=== PATIENT | male | born 1960 | race Caucasian/White ===

== ENCOUNTER → 2018-12-05 | Outpatient (CLI) | payer OTHER ==
--- NOTE | 2018-12-05 12:49 | KCIC ---
EXAM: Lumbar spine, flexion and extension. HISTORY: Pain. COMPARISON: None. FINDINGS: Frontal, lateral, flexion and extension views of the lumbar spine are obtained. There is grade 2 anterolisthesis of L5 on S1 with associated pars defects. There is degenerative endplate remodeling with disc space narrowing, osteophytosis and facet arthropathy at this level. The degree of listhesis is not significant change between flexion and extension, allowing for limitations due to overlying osseous structures. IMPRESSION: 1. Grade 2 anterolisthesis of L5 on S1 with associated pars defects and advanced degenerative change. 2. No acute osseous finding. Electronically signed by: Genie Vivar MD (12/05/2018 12:46 PM) [facility]
== END | disposition home or self-care (01) ==
LOC: KCIC 11:25
PROVIDERS: ATTEND Neurological Surgery
DX: M43.07 Spondylolysis, lumbosacral region (principal); M48.07 Spinal stenosis, lumbosacral region; M12.88 Other specific arthropathies, not elsewhere classified, other specified site; G89.29 Other chronic pain
CPT/HCPCS: 72110

== ENCOUNTER 2019-01-19 10:30 | Inpatient (IN) | payer OTHER ==
[~2019-01-19] VITALS: Ht 175.3 cm; Wt 81.6 kg
[2019-02-24] MEDS ORDERED: IBUP-1060 PO (17:15)
[2019-02-24] MEDS ORDERED: CANA300T PO (17:15)
[2019-02-24] MEDS ORDERED: METF10007 PO (17:15)
[2019-02-24] MEDS ORDERED: ATOR20TA58 PO (17:15)
[2019-02-24] MEDS ORDERED: OLME40TA12 PO (17:15)
[2019-02-24] MEDS ORDERED: LEVO50TA5 PO (17:15)
[2019-02-24] MEDS ORDERED: LORA-781 PO (17:15)
[2019-02-24] MEDS ORDERED: FLUT9.9S NS (17:15)
[2019-02-24] MEDS ORDERED: ZOLP10TA4 PO (17:15)
--- NOTE | 2019-03-03 15:50 | HP ---
ADMIT DATE: 03/06/2019 HISTORY OF PRESENT ILLNESS: The patient is a pleasant 59-year-old, who has problems with low back and left leg pain and has for years. His left leg feels weak and numb. He did undergo lumbar spine surgery in 1992 and did reasonably well from that. He says, beginning over the last year, he has noted an increase in his back and leg pain. He rates his pain usually a 6-7/10 and says it increases with activity. Lying down, does help him. He has been taking ibuprofen. He did take epidural steroid injections a year ago. He has also tried physical therapy, which made his symptoms worse. PAST MEDICAL HISTORY: Hypothyroidism, diabetes, hyperlipidemia, hypertension, insomnia. PAST SURGICAL HISTORY: Lumbar surgery in 1992, tonsillectomy. FAMILY HISTORY: Hypertension. ALLERGIES: TO PENICILLIN AND SULFA. CURRENT MEDICATIONS: Atorvastatin, Bydureon, Invokana, levothyroxine sodium, loratadine, metformin, olmesartan, triamcinolone, Voltaren, and zolpidem tartrate. REVIEW OF SYSTEMS: A 12-point review of systems was obtained and is noncontributory, except for that mentioned above. PHYSICAL EXAMINATION: NEUROSURGERY EXAMINATION: GENERAL APPEARANCE: Alert, pleasant, in no acute distress. HEAD: Normocephalic and atraumatic. SKIN: Warm and dry. Well healed lumbar incision. MUSCULOSKELETAL: Lumbar paraspinal muscle bulk is normal, restricted range of motion of lumbar spine, ceyn-dg-huuqebiz tenderness of lower lumbar spine with palpation, normal range of motion of the lower extremities bilaterally. EXTREMITIES: No clubbing, cyanosis, or edema. NEUROLOGIC: Alert and oriented x 3, normal recent and remote memory, strength 5/5 in bilateral lower extremities, except for 4/5 left foot dorsiflexion, and sensory was intact to light touch in bilateral lower extremities, except for decrease in light touch involving the dorsum of the left foot. Reflexes are present and symmetric in the lower extremities bilaterally. Positive straight leg raising on the left with back and left buttock pain, relieved by Lasegue's maneuver, negative straight leg raising on the right. Normal gait. IMAGING: I reviewed a lumbar MRI scan. There are postoperative changes at L5-S1 on the left. There is moderately severe left foraminal stenosis at this level. There is a grade 1 anterolisthesis. He does have pars interarticularis defect bilaterally at this level. I reviewed lumbar flexion and extension x-rays and there is no motion with grade 2 anterolisthesis. ASSESSMENT/ PLAN: He has not improved with time or physical therapy. I have recommended a laminectomy at L5-S1 with posterior instrumentation and posterolateral interbody fusion. We reviewed the rationale, technique, risks, and expected postoperative course. He would like to proceed. We are going to make the arrangements. SHIRIN VIEYRA MD DR: LUIS A/benjamin JOB#: [id number] / [id number] STEFANIE
[2019-03-06] VITALS (9 sets, daily range): BP systolic 107–125; BP diastolic 65–77
[2019-03-06] MEDS ORDERED: BACITRACIN 50,000 UNIT in IV NORMAL SALINE 1000ML BAG 1,000 ML IRR ONE (06:00)
[2019-03-06] MEDS ORDERED: BUPIVACAINE-EPI 0.5%-1:200000 MPF 30 ML VIAL. INJ ONE (06:30)
[2019-03-06] MEDS ORDERED: PROCHLORPERAZINE 10 MG/2 ML VIAL. IV PRN (07:00)
[2019-03-06] MEDS ORDERED: fentaNYL PF VIAL 100 MCG/2 ML VIAL IV PRN (07:00)
[2019-03-06] MEDS ORDERED: ONDANSETRON PF 4 MG/2 ML VIAL. IV PRN ×2 (07:00→14:30)
[2019-03-06] MEDS ORDERED: LIDOCAINE 1% PF 2 ML VIAL. ID PRN (07:00)
[2019-03-06] MEDS ORDERED: IV RINGERS,LACTATED 1000ML 1,000 ML IV SCH (07:00)
[2019-03-06] MEDS ORDERED: HYDROmorphone 2 MG/ML VIAL IV PRN (07:00)
[2019-03-06] MEDS ORDERED: GELATIN SPONGE SIZE 100. ONE (07:12)
[2019-03-06] MEDS ORDERED: KETOROLAC 60 MG/2 ML VIAL. ONE (07:12)
[2019-03-06] MEDS ORDERED: THROMBIN TOPICAL 20,000 UNIT SPRAY.SYRN KIT TP ONE (07:13)
[2019-03-06] MEDS ORDERED: ROCURONIUM 50 MG/5 ML VIAL. ONE (08:01)
[2019-03-06] MEDS ORDERED: PROPOFOL 50 ML IV ONE ×2 (08:01→12:01)
[2019-03-06] MEDS ORDERED: LIDOCAINE 2% PF 5 ML VIAL. ONE (08:01)
[2019-03-06] MEDS ORDERED: DEXAMETHASONE SOD PHOS 20 MG/5 ML VIAL. ONE (08:01)
[2019-03-06] MEDS ORDERED: ONDANSETRON PF 4 MG/2 ML VIAL. ONE (08:01)
[2019-03-06] MEDS ORDERED: PROPOFOL 20 ML IV ONE (08:01)
[2019-03-06] MEDS ORDERED: REMIFENTANIL 2 MG VIAL. IV ONE (08:01)
[2019-03-06] MEDS ORDERED: PHENYLEPHRINE 10 MG/ML VIAL. ONE (08:02)
[2019-03-06] MEDS ORDERED: 0.9 % SODIUM CHLORIDE 20 ML VIAL. IJ ONE (08:02)
[2019-03-06] MEDS ORDERED: MINERAL OIL/PETROLATUM,WHITE OPHTH OINT 3.5GM TUBE. ONE (08:02)
[2019-03-06] MEDS ORDERED: INSULIN LISPRO 100 UNIT/ML 3ML VIAL for OP,RR ONLY. SQ PRN (08:30)
[2019-03-06] MEDS ORDERED: MIDAZOLAM HCL/PF 2 MG/2 ML VIAL. ONE (10:08)
[2019-03-06] MEDS ORDERED: ePHEDrine PF IN SALINE 50 MG/10 ML SYRINGE. IV ONE (11:15)
[2019-03-06] MEDS ORDERED: GLYCOPYRROLATE 1 MG/5 ML VIAL. ONE (11:18)
--- NOTE | 2019-03-06 13:19 | RAD ---
CT LUMBAR SPINE WO CONTRAST History: Spondylolisthesis. Lumbar stenosis. Radiculopathy. Technique: Noncontrast CT of the lumbar spine. Coronal and sagittal reconstructions were performed. Comparison: Radiograph December 05, 2018. Findings: Grade 2 anterolisthesis L5 on S1 due to bilateral L5 spondylolysis. L1-L2: Minimal posterior disc bulge. Mild facet arthropathy. No canal or neuroforaminal narrowing. L2-L3: Small posterior disc bulge. Mild facet arthropathy. No canal or neuroforaminal narrowing. L3-L4: Posterior disc bulge. Moderate facet arthropathy. Subarticular recess narrowing. No canal narrowing. No neuroforaminal narrowing. L4-L5: Broad-based posterior disc bulge. Advanced facet arthropathy. Mild canal narrowing. No neuroforaminal narrowing. L5-S1: Grade 2 anterolisthesis. Disc uncovering. No canal narrowing. Moderate to severe left and severe right neural foraminal narrowing. Impression: 1. Grade 2 anterolisthesis L5 on S1 due to bilateral L5 spondylolysis contributing to severe right and moderate to severe left neuroforaminal narrowing. 2. Additional lumbar spondylosis most prominent L4-L5. Electronically signed by: Raul Godoy DO (03/06/2019 1:16 PM) [id number]
[2019-03-06] MEDS ORDERED: METHOCARBAMOL 750 MG TABLET PO PRN (14:30)
[2019-03-06] MEDS ORDERED: MAG HYDROX/ALUMINUM HYD/SIMETH 30 ML ORAL.SUSP PO PRN (14:30)
[2019-03-06] MEDS ORDERED: NALOXONE 0.4 MG/ML VIAL. IV PRN (14:30)
[2019-03-06] MEDS ORDERED: ACETAMINOPHEN 325 MG TABLET. PO PRN (14:30)
[2019-03-06] MEDS ORDERED: 0.9 % SODIUM CHLORIDE 10 ML DISP.SYRIN. IV PRN (14:30)
[2019-03-06] MEDS ORDERED: oxyCODONE/APAP 5/325 1 TAB TABLET PO PRN (14:30)
[2019-03-06] MEDS ORDERED: fentaNYL PF VIAL 100 MCG/2 ML VIAL IVP PRN (14:30)
[2019-03-06] MEDS ORDERED: MAGNESIUM HYDROXIDE 2,400 MG/30 ML ORAL.SUSP. PO PRN (14:30)
[2019-03-06] MEDS ORDERED: CALCIUM CARBONATE 500 MG TAB.CHEW PO PRN (14:30)
[2019-03-06] MEDS ORDERED: DEXTROSE 50% 25 GM / 50ML DISP.SYRIN. IV PRN ×2 (14:30→16:45)
[2019-03-06] MEDS ORDERED: diphenhydrAMINE HCL 25 MG CAPSULE PO PRN (14:30)
[2019-03-06] MEDS ORDERED: fentaNYL PF VIAL 100 MCG/2 ML VIAL ONE ×2 (14:44→15:31)
[2019-03-06] MEDS: fentaNYL PF VIAL 100 MCG/2 ML VIAL IV PRN ×4 (14:48→15:53)
[2019-03-06] MEDS ORDERED: MORPHINE SULFATE 2 MG/ML VIAL. ONE (15:07)
[2019-03-06] MEDS: MORPHINE SULFATE 2 MG/ML VIAL. IV PRN ×2 (15:12→15:24)
[2019-03-06] MEDS ORDERED: ZOLPIDEM 5 MG TABLET. PO PRN (15:15)
--- NOTE | 2019-03-06 16:10 | NUR ---
Arrived to unit by bed from PACU. Alert and oriented x's 4. No c/o at this time. Dressings lower back x's 2 have moderate amts of shadowing. Place ice pack to the area. Moves all extremities without difficulty. No numbness. Pedal pulses +, warm touch and wiggles toes without difficulty. ANA's and SCD's on bilaterally. O2 at 2l per n/c. IVF's intact and infusing. Oriented to room and controls. Side rails up X's 2 with call light in reach. Family at bedside. Cont. monitor.
[2019-03-06] MEDS: INSULIN LISPRO 300 UNITS/3 ML VIAL. SQ SCH (16:59)
[2019-03-06] MEDS ORDERED: POTASSIUM CL 20MEQ-0.45% NACL 1,000 ML IV SCH (17:00)
[2019-03-06] MEDS: ceFAZolin SODIUM IV Push 1 GM VIAL. IVP SCH (18:14)
[2019-03-06] MEDS: DOCUSATE SODIUM 100 MG CAPSULE. PO SCH (20:58)
[2019-03-06] MEDS ORDERED: ATORVASTATIN CALCIUM 20 MG TABLET PO SCH (21:00)
[2019-03-06] MEDS ORDERED: ceFAZolin SODIUM IV Push 1 GM VIAL. IVP SCH (22:00)
[2019-03-07] MEDS: ceFAZolin SODIUM IV Push 1 GM VIAL. IVP SCH ×2 (02:55→11:13)
[2019-03-07 03:00] VITALS: BP 104/61
[2019-03-07 06:00] VITALS: BP 109/54
[2019-03-07] MEDS ORDERED: LEVOTHYROXINE 50 MCG TABLET PO SCH (07:30)
[2019-03-07] MEDS: INSULIN LISPRO 300 UNITS/3 ML VIAL. SQ SCH ×2 (08:00→11:14)
[2019-03-07] MEDS: oxyCODONE/APAP 5/325 1 TAB TABLET PO PRN ×2 (08:03→14:04)
[2019-03-07] MEDS: DOCUSATE SODIUM 100 MG CAPSULE. PO SCH (08:03)
[2019-03-07] MEDS ORDERED: metFORMIN 500 MG TABLET PO SCH (09:00)
[2019-03-07] MEDS ORDERED: ATORVASTATIN CALCIUM 20 MG TABLET PO SCH (09:00)
[2019-03-07] MEDS ORDERED: NON FORMULARY ITEM (Canagliflozin (Invokana) 300 MG) PO SCH (09:00)
[2019-03-07] MEDS ORDERED: FLUTICASONE 50MCG/NASAL SPRAY 16GM BOTTLE. NS SCH (09:00)
[2019-03-07] MEDS ORDERED: LOSARTAN POTASSIUM 50 MG TABLET. PO SCH (09:00)
[2019-03-07] MEDS ORDERED: CETIRIZINE HCL 10 MG TABLET. PO SCH (09:00)
[2019-03-07 11:14] VITALS: BP 114/70
[2019-03-07] MEDS ORDERED: METH750T2 PO (12:27)
[2019-03-07] MEDS ORDERED: DOCU-153 PO (12:27)
[2019-03-07] MEDS ORDERED: OXYC1TAB15 PO (12:27)
--- NOTE | 2019-03-07 12:28 | DISCH ---
DISCHARGE INSTRUCTIONS Condition on Discharge Condition on Discharge: Stable Activity After Discharge Activity Instructions for Disc: Activity as tolerated, Avoid exertion, Prog ressive ambulation Bathing Instructions: No Tub Bath until see Lifting Instructions after Dis: No heavy lifting, No pulling or pushing, Do not lift >10 pounds Exercise Instruction after Dis: Walk 30 min, 5 x per week, Exercise per therapy, Progress as tolerated Driving Instructions after Dis: Do not drive Wound Incision Care Wound/Incision Care: Ice to area for comfort, Keep wound/cast CDI, Change dressing, May get incision wet, Reinforce dressing PRN Other wound/incision instructi: Shower 48 hours after surgery and remove dressing. Replace if desired Wound Care Equipment: Dressings Checks after Discharge Checks after discharge: Check blood sugar, ac/hs Contacting the DREdith after DC Call your doctor for: Concerns you may have Follow-Up Follow Up With: Dr Vieyra's nurse in two weeks for a follow up appointment [phone] Treatment/Equipment after DC Adaptive Equipment Issued: Brace/splint SHIRIN VIEYRA MD Mar 07, 2019 12:28
--- NOTE | 2019-03-07 13:53 | PDOC ---
PROGRESS NOTES Subjective Subjective POD #1 Up ambulating in room back sore legs feel better wants to go home Objective Objective Vital Signs Date Time Temp Pulse Resp B/P (MAP) Pulse Ox O2 Delivery O2 Flow Rate FiO2 03/07/19 11:14 98.0 77 18 114/70 (85) 96 Room Air 98.0 03/07/19 06:00 2.0 Intake and Output 03/07/19 07:00 Intake Total 3280 ml Output Total 3750 ml Balance -470 ml Intake Oral 1480 ml IV Total 1800 ml Output Urine Total 3750 ml Physical Exam General: Alert, Oriented X3, Cooperative, No acute distress MUSCULOSKELETAL: Other (VILLASEÑOR) Skin: Other (Dressing dry and intact) Plan Plan of Care dc home f/u 2 weeks Comment Review of Relevant I have reviewed the following items allan (where applicable) has been applied. Labs Laboratory Tests Test 03/06/19 08:19 03/06/19 09:58 03/06/19 16:28 03/06/19 20:34 Glucose (Fingerstick) 127 mg/dL (70-99) 96 mg/dL (70-99) 200 mg/dL (70-99) 283 mg/dL (70-99) Test 03/07/19 06:25 03/07/19 11:09 Glucose (Fingerstick) 165 mg/dL (70-99) 184 mg/dL (70-99) Laboratory Tests Test 03/06/19 16:28 03/06/19 20:34 03/07/19 06:25 03/07/19 11:09 Glucose (Fingerstick) 200 mg/dL (70-99) 283 mg/dL (70-99) 165 mg/dL (70-99) 184 mg/dL (70-99) Medications Current Medications Ondansetron HCl (Zofran) 4 mg PRN Q6HRS PRN IV NAUSEA/VOMITING; Start 03/06/19 at 07:00; Stop 03/06/19 at 19:00; Status DC Fentanyl Citrate (Fentanyl 2ml Vial) 25 mcg PRN Q5MIN PRN IV MILD PAIN 1-3; Start 03/06/19 at 07:00; Stop 03/06/19 at 19:00; Status DC Fentanyl Citrate (Fentanyl 2ml Vial) 50 mcg PRN Q5MIN PRN IV MODERATE TO SEVERE PAIN Last administered on 03/06/19at 15:53; Start 03/06/19 at 07:00; Stop 03/06/19 at 19:00; Status DC Morphine Sulfate (Morphine Sulfate) 1 mg PRN Q10MIN PRN IV SEVERE PAIN 7-10 Last administered on 03/06/19at 15:24; Start 03/06/19 at 07:00; Stop 03/06/19 at 19:00; Status DC Ringer's Solution 1,000 ml @ 30 mls/hr Q24H IV Last administered on 03/06/19at 08:24; Start 03/06/19 at 07:00; Stop 03/06/19 at 18:59; Status DC Lidocaine HCl (Xylocaine-Mpf 1% 2ml Vial) 2 ml PRN 1X PRN ID PRIOR TO IV START; Start 03/06/19 at 07:00; Stop 03/06/19 at 19:00; Status DC Hydromorphone HCl (Dilaudid) 0.5 mg PRN Q10MIN PRN IV SEV PAIN, Second choice; Start 03/06/19 at 07:00; Stop 03/06/19 at 19:00; Status DC Prochlorperazine Edisylate (Compazine) 5 mg PACU PRN PRN IV NAUSEA, MRX1; Start 03/06/19 at 07:00; Stop 03/06/19 at 19:00; Status DC Bupivacaine HCl/ Epinephrine Bitart (Sensorcain-Epi 0.5%-1:[id number] Mpf) 30 ml 1X ONCE INJ Last administered on 03/06/19at 11:31; Start 03/06/19 at 06:30; Stop 03/06/19 at 06:31; Status DC Bacitracin 91349 unit/Sodium Chloride 1,000 ml @ 1,000 mls/hr 1X ONCE IRR Last administered on 03/06/19at 11:31; Start 03/06/19 at 06:00; Stop 03/06/19 at 06:59; Status DC Cefazolin Sodium/ Dextrose 50 ml @ 100 mls/hr 1X PREOP PRN IV PRIOR TO PROCEDURE Last administered on 03/06/19at 11:05; Start 03/06/19 at 06:00; Stop 03/06/19 at 18:00; Status DC Gelatin (Gelfoam Size 100) 1 each STK-MED ONCE .ROUTE Last administered on 03/06/19at 11:31; Start 03/06/19 at 07:12; Stop 03/06/19 at 07:13; Status DC Ketorolac Tromethamine (Toradol Im) 60 mg STK-MED ONCE .ROUTE Last administered on 03/06/19at 11:31; Start 03/06/19 at 07:12; Stop 03/06/19 at 07:13; Status DC Thrombin 20,000 unit STK-MED ONCE TP Last administered on 03/06/19at 11:31; Start 03/06/19 at 07:13; Stop 03/06/19 at 07:13; Status DC Propofol 20 ml @ As Directed STK-MED ONCE IV ; Start 03/06/19 at 08:01; Stop 03/06/19 at 08:02; Status DC Dexamethasone Sodium Phosphate (Decadron) 20 mg STK-MED ONCE .ROUTE ; Start 03/06/19 at 08:01; Stop 03/06/19 at 08:02; Status DC Lidocaine HCl (Lidocaine Pf 2% Vial) 5 ml STK-MED ONCE .ROUTE ; Start 03/06/19 at 08:01; Stop 03/06/19 at 08:02; Status DC Ondansetron HCl (Zofran) 4 mg STK-MED ONCE .ROUTE ; Start 03/06/19 at 08:01; Stop 03/06/19 at 08:02; Status DC Propofol 50 ml @ As Directed STK-MED ONCE IV ; Start 03/06/19 at 08:01; Stop 03/06/19 at 08:02; Status DC Rocuronium Palmetto (Zemuron) 50 mg STK-MED ONCE .ROUTE ; Start 03/06/19 at 08:01; Stop 03/06/19 at 08:02; Status DC Remifentanil HCl (Ultiva) 2 mg STK-MED ONCE IV ; Start 03/06/19 at 08:01; Stop 03/06/19 at 08:02; Status DC Phenylephrine HCl (Rudolph-Synephrine Inj) 10 mg STK-MED ONCE .ROUTE ; Start 03/06/19 at 08:02; Stop 03/06/19 at 08:02; Status DC Multi-Ingred Cream/Lotion/Oil/ Oint (Artificial Tears Eye Ointment) 7 gelacio STK- MED ONCE .ROUTE ; Start 03/06/19 at 08:02; Stop 03/06/19 at 08:02; Status DC Sodium Chloride (SODIUM CHLORIDE 20ml) 20 ml STK-MED ONCE IJ ; Start 03/06/19 at 08:02; Stop 03/06/19 at 08:02; Status DC Insulin Human Lispro (HumaLOG VIAL for OP,RR ONLY) 0-10 units PRN Q1HR PRN SQ PER PROTOCOL Last administered on 03/06/19at 08:49; Start 03/06/19 at 08:30; Stop 03/06/19 at 19:00; Status DC Midazolam HCl (Versed) 2 mg STK-MED ONCE .ROUTE ; Start 03/06/19 at 10:08; Stop 03/06/19 at 10:08; Status DC Ephedrine Sulfate (ePHEDrine PF IN SALINE SYRINGE) 50 mg STK-MED ONCE IV ; Start 03/06/19 at 11:15; Stop 03/06/19 at 11:15; Status DC Glycopyrrolate (Robinul) 1 mg STK-MED ONCE .ROUTE ; Start 03/06/19 at 11:18; Stop 03/06/19 at 11:18; Status DC Propofol 50 ml @ As Directed STK-MED ONCE IV ; Start 03/06/19 at 12:01; Stop 03/06/19 at 12:02; Status DC Atorvastatin Calcium (Lipitor) 20 mg HS PO ; Start 03/06/19 at 21:00; Stop 03/06/19 at 20:55; Status DC Levothyroxine Sodium (Synthroid) 50 mcg DAILYAC PO Last administered on 03/07/19at 08:03; Start 03/07/19 at 07:30 Non-Formulary Medication (Canagliflozin (Invokana)) 300 mg DAILY PO ; Start 03/07/19 at 09:00; Status UNV Fluticasone Propionate (Flonase) 2 spray DAILY NS ; Start 03/07/19 at 09:00 Cetirizine HCl (ZyrTEC) 10 mg DAILY PO Last administered on 03/07/19at 08:02; Start 03/07/19 at 09:00 Metformin HCl (Glucophage) 1,000 mg DAILY PO Last administered on 03/07/19at 08:03; Start 03/07/19 at 09:00 Losartan Potassium (Cozaar) 100 mg DAILY PO Last administered on 03/07/19 08:07; Start 03/07/19 at 09:00 Zolpidem Tartrate (Ambien) 10 mg PRN QHS PRN PO INSOMNIA Last administered on 03/06/19 22:58; Start 03/06/19 at 15:15 Fentanyl Citrate (Fentanyl 2ml Vial) 50 mcg PRN Q2HR PRN IVP PAIN Last administered on 03/07/19 00:38; Start 03/06/19 at 14:30 Acetaminophen (Tylenol) 650 mg PRN Q6HRS PRN PO MILD PAIN / TEMP; Start 03/06/19 at 14:30 Al Hydroxide/Mg Hydroxide (Mylanta Plus Xs) 30 ml PRN Q3HRS PRN PO HEARTBURN / GAS; Start 03/06/19 at 14:30 Calcium Carbonate/ Glycine (Tums) 500 mg PRN Q3HRS PRN PO INDIGESTION Last admi nistered on 03/07/19at 10:47; Start 03/06/19 at 14:30 Diphenhydramine HCl (Benadryl) 25 mg PRN Q6HRS PRN PO ITCHING; Start 03/06/19 at 14:30 Naloxone HCl (Narcan) 0.1 mg PRN Q2MIN PRN IV ADMIN; Start 03/06/19 at 14:30 Sodium Chloride (Normal Saline Flush) 3 ml QSHIFT PRN IV AFTER MEDS AND BLOOD DRAWS; Start 03/06/19 at 14:30 Potassium Chloride/Sodium Chloride 1,000 ml @ 75 mls/hr [id number] IV Last administered on 03/06/19 16:26; Start 03/06/19 at 17:00; Stop 03/07/19 at 05:34; Status DC Oxycodone/ Acetaminophen (Percocet 5/325) 1 tab PRN Q4HRS PRN PO MILD PAIN, 1ST CHOICE Last administered on 03/06/19at 20:59; Start 03/06/19 at 14:30 Oxycodone/ Acetaminophen (Percocet 5/325) 2 tab PRN Q4HRS PRN PO MODERATE PAIN, SEVERE PAIN Last administered on 03/07/19 08:03; Start 03/06/19 at 14:30 Methocarbamol (Robaxin) 750 mg PRN TID PRN PO MUSCLE SPASMS Last administered on 03/06/19at 21:13; Start 03/06/19 at 14:30 Docusate Sodium (Colace) 100 mg BID PO Last administered on 03/07/19at 08:03; Start 03/06/19 at 21:00 Magnesium Hydroxide (Milk Of Magnesia) 2,400 mg PRN Q12HR PRN PO CONSTIPATION; Start 03/06/19 at 14:30 Ondansetron HCl (Zofran) 4 mg PRN Q6HRS PRN IV NAUESA, 1ST CHOICE; Start 03/06/19 at 14:30 Cefazolin Sodium (Ancef) 1 gm Q8HRS IVP ; Start 03/06/19 at 22:00; Stop 03/07/19 at 14:01; Status UNV Dextrose (Dextrose 50%-Water Syringe) 12.5 gm PRN Q15MIN PRN IV SEE COMMENTS; Start 03/06/19 at 14:30; Stop 03/06/19 at 16:37; Status DC Morphine Sulfate (Morphine Sulfate) 2 mg STK-MED ONCE .ROUTE ; Start 03/06/19 at 15:07; Stop 03/06/19 at 15:08; Status DC Fentanyl Citrate (Fentanyl 2ml Vial) 100 mcg STK-MED ONCE .ROUTE ; Start 03/06/19 at 14:44; Stop 03/06/19 at 15:10; Status DC Fentanyl Citrate (Fentanyl 2ml Vial) 100 mcg STK-MED ONCE .ROUTE ; Start 03/06 at 15:31; Stop 03/06/19 at 15:32; Status DC Cefazolin Sodium (Ancef) 1 gm Q8H IVP Last administered on 03/07/19at 11:13; S tart 03/06/19 at 19:00; Stop 03/07/19 at 11:01; Status DC Insulin Human Lispro (HumaLOG) 0-5 UNITS TIDWMEALS SQ Last administered on 03/06/19at 16:59; Start 03/06/19 at 17:00 Dextrose (Dextrose 50%-Water Syringe) 12.5 gm PRN Q15MIN PRN IV SEE COMMENTS; Start 03/06/19 at 16:45 Atorvastatin Calcium (Lipitor) 20 mg DAILY PO Last administered on 03/07/19at 08:02; Start 03/07/19 at 09:00 Active Scripts Active Dok (Docusate Sodium) 100 Mg Capsule 100 Mg PO BID Percocet 5-325 Mg Tablet (Oxycodone/Acetaminophen) 1 Each Tablet 1 Tab PO PRN Q4HRS PRN Methocarbamol 750 Mg Tablet 750 Mg PO PRN TID PRN Reported Flonase Allergy Relief (Fluticasone Propionate) 9.9 Ml Stanton.susp 1 Sprays NS DAILY Allergy Relief (Loratadine) 10 Mg Tablet 10 Mg PO DAILY Zolpidem Tartrate 10 Mg Tablet 10 Mg PO PRN QHS PRN Atorvastatin Calcium 20 Mg Tablet 20 Mg PO HS Levothyroxine Sodium 50 Mcg Tablet 50 Mcg PO DAILYAC Benicar (Olmesartan Medoxomil) 40 Mg Tablet 40 Mg PO DAILY Invokana (Canagliflozin) 300 Mg Tablet 300 Mg PO DAILY Metformin Hcl 1,000 Mg Tablet 1,000 Mg PO DAILY Vitals/I & O Vital Sign - Last 24 Hours 03/06/19 03/06/19 03/06/19 03/06/19 14:33 14:33 14:48 14:54 Temp 98.1 98.1 Pulse 124 Resp 16 18 16 B/P (MAP) 115/52 Pulse Ox 97 97 98 O2 Delivery Room Air Mask Simple Mask Simple Mask O2 Flow Rate 10 10.0 10.0 03/06/19 03/06/19 03/06/19 03/06/19 14:55 15:10 15:12 15:24 Temp 98.1 98.1 98.1 98.1 Pulse 130 130 Resp 14 14 16 16 B/P (MAP) 118/65 107/65 Pulse Ox 98 96 96 96 O2 Delivery Room Air Room Air Room Air Room Air 03/06/19 03/06/19 03/06/19 03/06/19 15:25 15:34 15:40 15:53 Temp 98.1 98.1 98.1 98.1 Pulse 126 116 Resp 12 16 15 16 B/P (MAP) 104/65 111/67 Pulse Ox 92 92 94 94 O2 Delivery Room Air Room Air Room Air Nasal Cannula O2 Flow Rate 10.0 2.0 03/06/19 03/06/19 03/06/19 03/06/19 15:55 16:15 16:23 16:30 Temp 98.1 98.6 98.1 98.6 Pulse 116 105 89 Resp 16 18 B/P (MAP) 108/63 112/70 (84) 123/73 (90) Pulse Ox 94 95 95 94 O2 Delivery Room Air Nasal Cannula Nasal Cannula Nasal Cannula O2 Flow Rate 2.0 2.0 2.0 2.0 03/06/19 03/06/19 03/06/19 03/06/19 16:37 16:45 17:02 17:31 Pulse 106 117 100 Resp 20 B/P (MAP) 125/75 (92) 122/71 (88) 108/65 (79) Pulse Ox 95 97 98 O2 Delivery Nasal Cannula Nasal Cannula Nasal Cannula Nasal Cannula O2 Flow Rate 2.0 2.0 2.0 03/06/19 03/06/19 03/06/19 03/06/19 18:00 19:00 19:30 20:00 Temp 98.2 98.2 Pulse 100 103 99 Resp 18 18 18 B/P (MAP) 118/71 (87) 124/71 (88) 121/77 (92) Pulse Ox 97 91 95 O2 Delivery Nasal Cannula Room Air Room Air Room Air O2 Flow Rate 2.0 03/06/19 03/06/19 03/06/19 03/07/19 20:59 22:00 23:00 00:38 Temp 98.5 98.5 Pulse 89 Resp 20 20 18 20 B/P (MAP) 107/65 (79) Pulse Ox 95 94 90 96 O2 Delivery Room Air Room Air Room Air Nasal Cannula O2 Flow Rate 2.0 03/07/19 03/07/19 03/07/19 03/07/19 01:00 03:00 06:00 08:00 Temp 98.3 98.3 98.3 98.3 Pulse 95 91 Resp 18 18 18 B/P (MAP) 104/61 (75) 109/54 (72) Pulse Ox 2 96 95 O2 Delivery Nasal Cannula Nasal Cannula Nasal Cannula Room Air O2 Flow Rate 2.0 2.0 03/07/19 03/07/19 03/07/19 03/07/19 08:03 08:07 09:03 11:14 Temp 98.0 98.0 Pulse 89 77 Resp 18 B/P (MAP) 116/78 114/70 (85) Pulse Ox 96 96 O2 Delivery Room Air Room Air Room Air Intake and Output 03/06/19 03/06/19 03/07/19 15:00 23:00 07:00 Intake Total 1800 ml 500 ml 980 ml Output Total 1400 ml 1200 ml 1150 ml Balance 400 ml -700 ml -170 ml JAK MINA APRN Mar 07, 2019 13:53
--- NOTE | 2019-03-07 15:10 | NUR ---
Patient left the building with his around 1510. LSO brace came from [facility] and was fitted to the patient. Dressing to lower back incision changed and assessed. No signs of infection noted. Dressing change instructions on over with the patient as well as his and extra dressing were given to the patient. Discharge education completed with the patient and his prior to him leaving. No concerns noted upon discharge. Script for percocet and robaxin given to the patient to take to the Pharmacy. IV discontinued in his left forearm without any complications. Pain medicine given to him prior to discharge around 1430
--- NOTE | 2019-03-07 16:06 | PATHOLOGY ---
[facility] Accession Number: [id number] . 01 Material submitted: . vertebral column - LUMBAR DECOMPRESSION . 01 Clinical history: . Lumbar spondylolisthesis, stenosis, radiculopathy . 02 Diagnosis: "Lumbar decompression": - Reactive fibrocartilage with associated skeletal muscle. (MAP/db; 03/07/19) LBQ 03/07/2019 1313 Local . 02 Electronically signed: . Paxton Cyr MD, Pathologist NPI- [id number] . 01 Gross description: . Received in formalin labeled "Hayder Romo, lumbar decompression," are several pieces of glistening, fibrous tissue measuring 4.3 x 3.1 x 1.3 cm in aggregate dimensions, containing small fragments of possible bone. The tissue is submitted representatively in cassette A1, following decalcification. (TSD; 03/06/2019) TOB/TOB 03/06/2019 2051 Local . 02 Pathologist provided ICD-10: M48.061, M43.16, M54.16 . 02 CPT . 848429, 042035 Specimen Comment: A courtesy copy of this report has been sent to [phone], [phone] Specimen Comment: [id number] Specimen Comment: Report sent to / DR ROSARIO Specimen Comment: A duplicate report has been generated due to demographic updates. Performed at: [facility] [address], [place] [id number] MD Renny Killian MD Phone: [phone] Performed at: [facility] [address], [place] [id number] MD Bryon Garcia MD Phone: [phone]
--- NOTE | 2019-03-15 15:25 | PDOC ---
Date and Time In the OR 03/06 Mr Romo was administered a total of 100mcg bolus doses plus an infusion of remifentanil. The bolus doses were incorrectly charted as fentanyl. The anesthesia record has been changed to reflect this. Current Medications Current Medications Ondansetron HCl (Zofran) 4 mg PRN Q6HRS PRN IV NAUSEA/VOMITING; Start 03/06/19 at 07:00; Stop 03/06/19 at 19:00; Status DC Fentanyl Citrate (Fentanyl 2ml Vial) 25 mcg PRN Q5MIN PRN IV MILD PAIN 1-3; Start 03/06/19 at 07:00; Stop 03/06/19 at 19:00; Status DC Fentanyl Citrate (Fentanyl 2ml Vial) 50 mcg PRN Q5MIN PRN IV MODERATE TO SEVERE PAIN Last administered on 03/06/19at 15:53; Start 03/06/19 at 07:00; Stop 03/06/19 at 19:00; Status DC Morphine Sulfate (Morphine Sulfate) 1 mg PRN Q10MIN PRN IV SEVERE PAIN 7-10 Last administered on 03/06/19at 15:24; Start 03/06/19 at 07:00; Stop 03/06/19 at 19:00; Status DC Ringer's Solution 1,000 ml @ 30 mls/hr Q24H IV Last administered on 03/06/19at 08:24; Start 03/06/19 at 07:00; Stop 03/06/19 at 18:59; Status DC Lidocaine HCl (Xylocaine-Mpf 1% 2ml Vial) 2 ml PRN 1X PRN ID PRIOR TO IV START; Start 03/06/19 at 07:00; Stop 03/06/19 at 19:00; Status DC Hydromorphone HCl (Dilaudid) 0.5 mg PRN Q10MIN PRN IV SEV PAIN, Second choice; Start 03/06/19 at 07:00; Stop 03/06/19 at 19:00; Status DC Prochlorperazine Edisylate (Compazine) 5 mg PACU PRN PRN IV NAUSEA, MRX1; Start 03/06/19 at 07:00; Stop 03/06/19 at 19:00; Status DC Bupivacaine HCl/ Epinephrine Bitart (Sensorcain-Epi 0.5%-1:[id number] Mpf) 30 ml 1X ONCE INJ Last administered on 03/06/19 11:31; Start 03/06/19 at 06:30; Stop 03/06/19 at 06:31; Status DC Bacitracin 51686 unit/Sodium Chloride 1,000 ml @ 1,000 mls/hr 1X ONCE IRR Last administered on 03/06/19 11:31; Start 03/06/19 at 06:00; Stop 03/06/19 at 06:59; Status DC Cefazolin Sodium/ Dextrose 50 ml @ 100 mls/hr 1X PREOP PRN IV PRIOR TO PROCEDURE Last administered on 03/06/19at 11:05; Start 03/06/19 at 06:00; Stop 03/06/19 at 18:00; Status DC Gelatin (Gelfoam Size 100) 1 each STK-MED ONCE .ROUTE Last administered on 03/06/19at 11:31; Start 03/06/19 at 07:12; Stop 03/06/19 at 07:13; Status DC Ketorolac Tromethamine (Toradol Im) 60 mg STK-MED ONCE .ROUTE Last administered on 03/06/19at 11:; Start 03/06/19 at 07:12; Stop 03/06/19 at 07:13; Status DC Thrombin 20,000 unit STK-MED ONCE TP Last administered on 03/06/19 11:; Start 03/06/19 at 07:13; Stop 03/06/19 at 07:13; Status DC Propofol 20 ml @ As Directed STK-MED ONCE IV ; Start 03/06/19 at 08:01; Stop 03/06/19 at 08:02; Status DC Dexamethasone Sodium Phosphate (Decadron) 20 mg STK-MED ONCE .ROUTE ; Start 03/06/19 at 08:01; Stop 03/06/19 at 08:02; Status DC Lidocaine HCl (Lidocaine Pf 2% Vial) 5 ml STK-MED ONCE .ROUTE ; Start 03/06/19 at 08:01; Stop 03/06/19 at 08:02; Status DC Ondansetron HCl (Zofran) 4 mg STK-MED ONCE .ROUTE ; Start 03/06/19 at 08:01; Stop 03/06/19 at 08:02; Status DC Propofol 50 ml @ As Directed STK-MED ONCE IV ; Start 03/06/19 at 08:01; Stop 03/06/19 at 08:02; Status DC Rocuronium Parmelee (Zemuron) 50 mg STK-MED ONCE .ROUTE ; Start 03/06/19 at 08:01; Stop 03/06/19 at 08:02; Status DC Remifentanil HCl (Ultiva) 2 mg STK-MED ONCE IV ; Start 03/06/19 at 08:01; Stop 03/06/19 at 08:02; Status DC Phenylephrine HCl (Rudolph-Synephrine Inj) 10 mg STK-MED ONCE .ROUTE ; Start 03/06/19 at 08:02; Stop 03/06/19 at 08:02; Status DC Multi-Ingred Cream/Lotion/Oil/ Oint (Artificial Tears Eye Ointment) 7 gelacio STK- MED ONCE .ROUTE ; Start 03/06/19 at 08:02; Stop 03/06/19 at 08:02; Status DC Sodium Chloride (SODIUM CHLORIDE 20ml) 20 ml STK-MED ONCE IJ ; Start 03/06/19 at 08:02; Stop 03/06/19 at 08:02; Status DC Insulin Human Lispro (HumaLOG VIAL for OP,RR ONLY) 0-10 units PRN Q1HR PRN SQ PER PROTOCOL Last administered on 03/06/19at 08:49; Start 03/06/19 at 08:30; Stop 03/06/19 at 19:00; Status DC Midazolam HCl (Versed) 2 mg STK-MED ONCE .ROUTE ; Start 03/06/19 at 10:08; Stop 03/06/19 at 10:08; Status DC Ephedrine Sulfate (ePHEDrine PF IN SALINE SYRINGE) 50 mg STK-MED ONCE IV ; Start 03/06/19 at 11:15; Stop 03/06/19 at 11:15; Status DC Glycopyrrolate (Robinul) 1 mg STK-MED ONCE .ROUTE ; Start 03/06/19 at 11:18; Stop 03/06/19 at 11:18; Status DC Propofol 50 ml @ As Directed STK-MED ONCE IV ; Start 03/06/19 at 12:01; Stop 03/06/19 at 12:02; Status DC Atorvastatin Calcium (Lipitor) 20 mg HS PO ; Start 03/06/19 at 21:00; Stop 03/06/19 at 20:55; Status DC Levothyroxine Sodium (Synthroid) 50 mcg DAILYAC PO Last administered on 03/07/19at 08:03; Start 03/07/19 at 07:30; Stop 03/07/19 at 15:33; Status DC Non-Formulary Medication (Canagliflozin (Invokana)) 300 mg DAILY PO ; Start 03/07/19 at 09:00; Stop 03/07/19 at 15:33; Status DC Fluticasone Propionate (Flonase) 2 spray DAILY NS ; Start 03/07/19 at 09:00; Stop 03/07/19 at 15:33; Status DC Cetirizine HCl (ZyrTEC) 10 mg DAILY PO Last administered on 03/07/19at 08:02; Start 03/07/19 at 09:00; Stop 03/07/19 at 15:33; Status DC Metformin HCl (Glucophage) 1,000 mg DAILY PO Last administered on 03/07/19at 08:03; Start 03/07/19 at 09:00; Stop 03/07/19 at 15:33; Status DC Losartan Potassium (Cozaar) 100 mg DAILY PO Last administered on 03/07/19at 08:07; Start 03/07/19 at 09:00; Stop 03/07/19 at 15:33; Status DC Zolpidem Tartrate (Ambien) 10 mg PRN QHS PRN PO INSOMNIA Last administered on 03/06/19at 22:58; Start 03/06/19 at 15:15; Stop 03/07/19 at 15:33; Status DC Fentanyl Citrate (Fentanyl 2ml Vial) 50 mcg PRN Q2HR PRN IVP PAIN Last administered on 03/07/19at 00:38; Start 03/06/19 at 14:30; Stop 03/07/19 at 15:33; Status DC Acetaminophen (Tylenol) 650 mg PRN Q6HRS PRN PO MILD PAIN / TEMP; Start 03/06/19 at 14:30; Stop 03/07/19 at 15:33; Status DC Al Hydroxide/Mg Hydroxide (Mylanta Plus Xs) 30 ml PRN Q3HRS PRN PO HEARTBURN / GAS; Start 03/06/19 at 14:30; Stop 03/07/19 at 15:33; Status DC Calcium Carbonate/ Glycine (Tums) 500 mg PRN Q3HRS PRN PO INDIGESTION Last administered on 03/07/19at 10:47; Start 03/06/19 at 14:30; Stop 03/07/19 at 15:33; Status DC Diphenhydramine HCl (Benadryl) 25 mg PRN Q6HRS PRN PO ITCHING; Start 03/06/19 at 14:30; Stop 03/07/19 at 15:33; Status DC Naloxone HCl (Narcan) 0.1 mg PRN Q2MIN PRN IV ADMIN; Start 03/06/19 at 14:30; Stop 03/07/19 at 15:33; Status DC Sodium Chloride (Normal Saline Flush) 3 ml QSHIFT PRN IV AFTER MEDS AND BLOOD DRAWS; Start 03/06/19 at 14:30; Stop 03/07/19 at 15:33; Status DC Potassium Chloride/Sodium Chloride 1,000 ml @ 75 mls/hr [id number] IV Last admi nistered on 03/06/19at 16:26; Start 03/06/19 at 17:00; Stop 03/07/19 at 05:34; Status DC Oxycodone/ Acetaminophen (Percocet 5/325) 1 tab PRN Q4HRS PRN PO MILD PAIN, 1ST CHOICE Last administered on 03/06/19at 20:59; Start 03/06/19 at 14:30; Stop 03/07/19 at 15:33; Status DC Oxycodone/ Acetaminophen (Percocet 5/325) 2 tab PRN Q4HRS PRN PO MODERATE PAIN, SEVERE PAIN Last administered on 03/07/19at 14:04; Start 03/06/19 at 14:30; Stop 03/07/19 at 15:33; Status DC Methocarbamol (Robaxin) 750 mg PRN TID PRN PO MUSCLE SPASMS Last administered on 03/06/19at 21:13; Start 03/06/19 at 14:30; Stop 03/07/19 at 15:33; Status DC Docusate Sodium (Colace) 100 mg BID PO Last administered on 03/07/19at 08:03; Start 03/06/19 at 21:00; Stop 03/07/19 at 15:33; Status DC Magnesium Hydroxide (Milk Of Magnesia) 2,400 mg PRN Q12HR PRN PO CONSTIPATION; Start 03/06/19 at 14:30; Stop 03/07/19 at 15:33; Status DC Ondansetron HCl (Zofran) 4 mg PRN Q6HRS PRN IV NAUESA, 1ST CHOICE; Start 03/06/19 at 14:30; Stop 03/07/19 at 15:33; Status DC Cefazolin Sodium (Ancef) 1 gm Q8HRS IVP ; Start 03/06/19 at 22:00; Stop 03/07/19 at 14:01; Status UNV Dextrose (Dextrose 50%-Water Syringe) 12.5 gm PRN Q15MIN PRN IV SEE COMMENTS; Start 03/06/19 at 14:30; Stop 03/06/19 at 16:37; Status DC Morphine Sulfate (Morphine Sulfate) 2 mg STK-MED ONCE .ROUTE ; Start 03/06/19 at 15:07; Stop 03/06/19 at 15:08; Status DC Fentanyl Citrate (Fentanyl 2ml Vial) 100 mcg STK-MED ONCE .ROUTE ; Start 03/06/19 at 14:44; Stop 03/06/19 at 15:10; Status DC Fentanyl Citrate (Fentanyl 2ml Vial) 100 mcg STK-MED ONCE .ROUTE ; Start 03/06/19 at 15:31; Stop 03/06/19 at 15:32; Status DC Cefazolin Sodium (Ancef) 1 gm Q8H IVP Last administered on 03/07/19at 11:13; Start 03/06/19 at 19:00; Stop 03/07/19 at 11:01; Status DC Insulin Human Lispro (HumaLOG) 0-5 UNITS TIDWMEALS SQ Last administered on 03/06/19at 16:59; Start 03/06/19 at 17:00; Stop 03/07/19 at 15:33; Status DC Dextrose (Dextrose 50%-Water Syringe) 12.5 gm PRN Q15MIN PRN IV SEE COMMENTS; Start 03/06/19 at 16:45; Stop 03/07/19 at 15:33; Status DC Atorvastatin Calcium (Lipitor) 20 mg DAILY PO Last administered on 03/07/19at 08:02; Start 03/07/19 at 09:00; Stop 03/07/19 at 15:33; Status DC Active Scripts Active Dok (Docusate Sodium) 100 Mg Capsule 100 Mg PO BID Percocet 5-325 Mg Tablet (Oxycodone/Acetaminophen) 1 Each Tablet 1 Tab PO PRN Q4HRS PRN Methocarbamol 750 Mg Tablet 750 Mg PO PRN TID PRN Reported Flonase Allergy Relief (Fluticasone Propionate) 9.9 Ml [place].susp 1 Sprays NS DAILY Allergy Relief (Loratadine) 10 Mg Tablet 10 Mg PO DAILY Zolpidem Tartrate 10 Mg Tablet 10 Mg PO PRN QHS PRN Atorvastatin Calcium 20 Mg Tablet 20 Mg PO HS Levothyroxine Sodium 50 Mcg Tablet 50 Mcg PO DAILYAC Benicar (Olmesartan Medoxomil) 40 Mg Tablet 40 Mg PO DAILY Invokana (Canagliflozin) 300 Mg Tablet 300 Mg PO DAILY Metformin Hcl 1,000 Mg Tablet 1,000 Mg PO DAILY ARIEL CHAN MD Mar 15, 2019 15:25
--- NOTE | 2019-03-16 10:17 | OP ---
DATE OF SURGERY: 03/06/2019 PREOPERATIVE DIAGNOSES: Spondylolisthesis L5-S1 with neural foraminal narrowing left and left lumbar radiculopathy. POSTOPERATIVE DIAGNOSES: Spondylolisthesis L5-S1 with neural foraminal narrowing left and left lumbar radiculopathy. OPERATION PERFORMED: Posterior instrumentation L5-S1, posterolateral fusion L5-S1, transforaminal microdecompression L5-S1 left. The operation was done with multimodality monitoring including EMG monitoring, somatosensory evoked potentials, motor evoked potentials, fluoroscopy, BrainLAB guidance, microscopic dissection. OPERATIVE INDICATIONS: The patient is a pleasant 59-year-old man who many years ago underwent lumbar surgery and did well from that. He has then over the last several years developed increasing back and left leg pain, which has become gradually more and more severe. He does notice weakness in his left foot and on imaging studies there is motion at L5-S1 from a grade 1 to grade 2 anterolisthesis. I recommended a posterior instrumentation to deal with anterolisthesis as well as a transforaminal decompression to help decompress the L5 root. I spoke with him about the surgery and the risks. He understood and he wished to go ahead. DESCRIPTION OF PROCEDURE: Following general endotracheal anesthesia, the patient was positioned prone on the Shawn table. Lumbar region prepped and draped in a standard fashion. ANA hose and AV impulse boots were applied for DVT prophylaxis. The microscope was draped. Fluoroscopy was draped and brought into field. Monitoring was established. Ancef 2 g was given less than 1 hour prior to initiation of surgery. Iliac posts were placed into the right iliac crest and the BrainLAB system was initialized. I then made a midline posterior incision extending from inferior L4 through superior S1. I dissected down through skin and subcutaneous tissue, reflected the paraspinal muscles and placed self-retaining retractors on the right side. Then, I drilled into the posterior aspect of the pedicle of L5 and S1, passed the black ball, followed by ball tip probe, followed by tap, followed by screw placement. During this time, I also excoriated laterally and aspirated 20 mL of bone marrow from the left iliac crest. This was mixed with allograft bone, which was then packed into the right lateral gutter. The screws were placed. The brynn was attached, but the system was not torqued. I then moved to the left side in a similar fashion, cannulated the L5 and the S1 pedicles, but did not place screws. During this time, we used stimulated EMG monitoring for any work through the pedicle and there was no untoward firing or any difficulties whatsoever. I then brought in the microscope and using the high speed air drill, I worked through dense scar where the patient has previous surgery and then the medial aspect of the foramen, drilled this material away to allow exposure into the foramen. I visualized both the L5 and the S1 roots and I decompressed. I was easily able to pass a Lane dental out laterally through the foramen. I placed the screws in L5 and S1 and distracted slightly at this location. I torqued the system and also during this time I excoriated posterolaterally and laterally and placed allograft bone in the left lateral gutter. I did not feel at L5-S1 I could safely place an interbody fusion cage. There simply was not enough room and there was too much scarring around the nerve roots and therefore I did a posterior decompression, posterior instrumentation and posterolateral fusion alone. I irrigated copiously at this point, I closed the wound in layers with absorbable suture. Skin was closed with 4-0 subcuticular stitch. The operation went very well and the patient was taken to recovery room in excellent condition. I was quite pleased with the surgery. SHIRIN VIEYRA MD DR: LUIS A/benjamin JOB#: [id number] / [id number]
== END 2019-03-07 15:10 | disposition home or self-care (01) | DRG 460 ==
LOC: OPSVCIP 03-06 07:54 → 4 SOUTHEST 03-06 16:05
PROVIDERS: ADMIT Neurological Surgery; ATTEND Neurological Surgery
PROC: 0SG3071 Fusion of Lumbosacral Joint with Autologous Tissue Substitute, Posterior Approach, Posterior Column, Open Approach (ICD-10-PCS; principal; 2019-03-06 10:30)
DX: M43.17 Spondylolisthesis, lumbosacral region (principal); M48.07 Spinal stenosis, lumbosacral region; M54.17 Radiculopathy, lumbosacral region; E03.9 Hypothyroidism, unspecified; E11.9 Type 2 diabetes mellitus without complications; E78.5 Hyperlipidemia, unspecified; I10 Essential (primary) hypertension; M43.10 Spondylolisthesis, site unspecified; Z82.49 Family history of ischemic heart disease and other diseases of the circulatory system; Z90.49 Acquired absence of other specified parts of digestive tract; Z88.0 Allergy status to penicillin; Z88.2 Allergy status to sulfonamides
CPT/HCPCS: 36415; 72131; 76000; 82962; 86850; 86900; 86901; 88304; 88311; A7015; C1713; J0171; J0690; J0696; J1100; J1815; J1885; J2001; J2250; J2270; J2405; J2704; J3010; J3490; J7030; J7120; G0378

== ENCOUNTER → 2019-02-27 | Outpatient (CLI) | payer OTHER ==
[~2019-02-27] MED LIST: ATOR20TA58 PO; CANA300T PO; DOCU-153 PO; FLUT9.9S NS; IBUP-1060 PO; LEVO50TA5 PO; LORA-781 PO; METF10007 PO; METH750T2 PO; OLME40TA12 PO; OXYC1TAB15 PO; ZOLP10TA4 PO
--- NOTE | 2019-02-27 15:27 | EKG ---
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
[2019-02-27 15:28] LABS: BASO % 1 % (0-3); EOS # 0.4 x10^3/uL (0.0-0.7); EOS % 6 % (0-3); HEMATOCRIT 48.4 % (39.0-53.0); LYMPH # 1.6 x10^3/uL (1.0-4.8); LYMPH % 27 % (24-48); MEAN CORPUSCULAR HEMOGLOBIN 29 pg (25-35); MEAN CORPUSCULAR HGB CONC 33 g/dL (31-37); MEAN CORPUSCULAR VOLUME 89 fL (79-100); MONO # 0.5 x10^3/uL (0.0-1.1); MONO % 9 % (0-9); NEUT # 3.3 x10^3/uL (1.8-7.7); NEUT % 57 % (31-73); PLATELET COUNT 209 x10^3/uL (140-400); RED BLOOD COUNT 5.46 x10^6/uL (4.30-5.70); RED CELL DISTRIBUTION WIDTH 13.8 % (11.5-14.5); WHITE BLOOD COUNT 5.8 x10^3/uL (4.0-11.0)
[2019-02-27 15:42] LABS: PROTHROMBIN TIME PATIENT 11.9 SEC (11.7-14.0)
[2019-02-27 15:53] LABS: ALBUMIN 4.2 g/dL (3.4-5.0); ALBUMIN/GLOBULIN RATIO 1.2 (1.0-1.7); CALCIUM 9.9 mg/dL (8.5-10.1); CREATININE 1.1 mg/dL (0.7-1.3); GFR 68.1; POTASSIUM 4.1 mmol/L (3.5-5.1); TOTAL BILIRUBIN 0.6 mg/dL (0.2-1.0); TOTAL PROTEIN 7.8 g/dL (6.4-8.2)
== END | disposition home or self-care (01) ==
LOC: SURGPAT 13:07
PROVIDERS: ATTEND Neurological Surgery
DX: Z01.818 Encounter for other preprocedural examination (principal); M43.17 Spondylolisthesis, lumbosacral region; M48.07 Spinal stenosis, lumbosacral region; M54.17 Radiculopathy, lumbosacral region; Z88.0 Allergy status to penicillin
CPT/HCPCS: 36415; 80053; 82306; 85025; 85610; 85730; 87641; 93005

== ENCOUNTER → 2019-05-23 | Outpatient (CLI) | payer OTHER ==
--- NOTE | 2019-05-23 18:25 | KCIC ---
Examination: LUMBAR SPINE 2-3V History: Status post lumbar spine fusion in March 2019. Family history on ice. Pain. Comparison/Correlation: CT lumbar spine without contrast 03/06/2019, 12/05/2018 lumbar spine x-ray exam Findings: Total 3 images of the lumbar spine were obtained. Lumbosacral spinal fusion at L5-S1 noted. Moderate L5-S1 disc space narrowing is present. Anterolisthesis of L5-S1 by slightly less than grade 1 extent noted. Vertebral body heights are adequate. Impression: No acute process. Electronically signed by: Harry Solano MD (05/23/2019 6:22 PM) [facility]
== END | disposition home or self-care (01) ==
LOC: KCIC 10:19
PROVIDERS: ATTEND Neurological Surgery
DX: M43.17 Spondylolisthesis, lumbosacral region (principal); Z98.1 Arthrodesis status
CPT/HCPCS: 72100